=== PATIENT | male | born 1970 | race Caucasian/White ===

== ENCOUNTER 2024-05-02 20:13 | Emergency (ER) | payer BC, SELFPAY ==
[2024-05-02 20:15] VITALS: BP 158/94; BMI 24.4
--- NOTE | 2024-05-02 21:35 | ED.GENMED ---
History of Present Illness
General
Chief Complaint: Fatigue
Source: patient and spouse
Time Seen by Provider: 05/02/24 21:20
History of Present Illness
History of Present Illness:
54yoM with a history of type 2 diabetes and hypertension presenting with his for evaluation of fatigue. Patient has been having diarrhea and a weight loss of 25 pounds over the past several months. His sugars have been ranging in the 300-400
range for the past 8+ months. He has been feeling increasing fatigue over the past week. He denies any fevers or vomiting. He has been seeing his PCP and GI for his symptoms. He had stool studies sent this morning which are pending. He is currently
on Januvia and Rebelsys for his diabetes. He was prescribed insulin several weeks ago but his PCP never told him that this was sent to the pharmacy or instructed him how to use it.
Past History
Past History
ED Past Medical History: HTN and Hypercholesterolemia
ED Past Surgical History: Other (Right inguinal hernia repair approximately 15 years ago)
Social History
Tobacco: Non-smoker
Alcohol: Occasional
Personal:
Living: with family
Employment: Employed
Family History
Family History: Hypertension
Phy Exam
General Physical Exam
General Presentation: well appearing and no apparent distress
General age: appears stated age
General Skin: warm and dry
General Habitus: normal
General Mental: alert
Cardiovascular Exam
Cardiovascular Exam: regular rate/rhythm, no edema and no murmur
Pulmonary Exam
Pulmonary Exam: lungs clear, no respiratory distress, no crackles and no wheezing
Gastrointestinal Exam
Gastrointestinal Exam: non tender, soft and non distended
Skin Exam
Skin Exam: normal color and warm/dry
Psychiatric Exam
Psychiatric Exam: normal mood/affect
Course
Orders/Labs/Results
Orders:
Orders
05/02/24 21:34
Electrocardiogram (*1) Urgent
Reason for Study: Other
Other Reason for Exam: Fatigue
EKG- Treatment ONCE
0.9% Sodium Chloride 1000 ml [Nss] 1,000 ml IV BOLUS
05/02/24 21:44
Complete Blood Count/With Diff Urgent
Comprehensive Metabolic Panel Urgent
Hemoglobin A1c [Glycohemoglobin (HgbA1c)] Urgent
Lipase Urgent
05/02/24 21:52
Urinalysis Reflex To Culture Urgent
Date Specimen was Collected: 05/02/24
Time Specimen was Collected: 21:51
05/02/24 22:22
Insulin Human Regular [Novolin R] 8 units IV NOW STA
05/03/24 00:14
Bedside Glucose- Treatment ONCE
Abnormal Lab Results
05/02/24 05/02/24 05/02/24
21:39 21:44 21:52
MCH 31.7 H pg
(27.0-31.0)
MPV 10.8 H fL
(7.4-10.4)
Sodium 132 L mmol/L
(135-145)
Chloride 96 L mmol/L
(98-107)
BUN 21 H mg/dl
(9-20)
Glucose 519 H* mg/dl
(70-99)
Alkaline Phosphatase 138 H U/L
(38-126)
Urine Glucose 3+ A
(Negative)
POC Glucose 533 H* mg/dl
(70-99)
05/02/24
23:58
MCH
MPV
Sodium
Chloride
BUN
Glucose
Alkaline Phosphatase
Urine Glucose
POC Glucose 335 H mg/dl
(70-99)
05/02/24 21:44
05/02/24 21:44
Vital Signs
Initial and Last Documented VS:
Initial Vital Signs
Temp Pulse Resp BP Pulse Ox
98.1 F 87 16 158/94 98
05/02/24 20:15 05/02/24 20:15 05/02/24 20:15 05/02/24 20:15 05/02/24 20:15
Last Documented Vital Signs
Temp Pulse Resp BP Pulse Ox
98.1 F 88 15 147/85 95
05/02/24 20:15 05/03/24 00:15 05/03/24 00:30 05/03/24 00:00 05/03/24 00:30
MDM/Problems Addressed
Differential Diagnosis Includes:
54yoM here with multiple symptoms. Main symptom is fatigue x 1 week and elevated blood sugars for several months. PCP reportedly prescribed insulin recently which he did not start because he was not given instructions. He is afebrile and
hemodynamically stable. He is well appearing in no distress. Exam is reassuring. Differential diagnosis includes but is not limited to: uncontrolled diabetes, DKA, HHS, LAYO, electrolyte abnormality
Initial ED plan: Check CBC, CMP, A1c, UA, and EKG. IV fluid bolus.
*EKG
Interpreted by ED Provider?: Yes
EKG Intrepretation Date: 05/02/24
EKG Intrepretation Time: 21:59
Heart Rate: 87
Rate: normal
Rhythm: sinus
[place]: normal axis
Interval: normal interval
QRS Pattern: normal QRS
Ischemia: no ischemia
*Critical Care Note
Total Time (30-74mins, 75-104mins- exclusive of procedures): Not Applicable
Update Note
Update Note:
Glucose elevated at 519. Bicarb and anion gap normal. No ketones present in urine. No evidence of DKA. Renal function stable. Patient given 8 units IV regular insulin. Glucose improved to 335. No indication for admission at this time. He was advised
to f/u with his PCP on Sunday. ED return precautions discussed. He was discharged in stable condition.
ED Attending Note
-
Portions of this chart may have been created with voice recognition software.� Occasional wrong word or��sound alike� substitutions may have occurred due to the inherent limitations of voice recognition software.
Discharge Plan
Departure
Patient Disposition: Home (Routine Discharge)
Date of Disposition: 05/03/24
Time of Disposition: 00:27
Patient with high blood pressure during this ER visit?: Yes
Discharge Problem:
Hyperglycemia due to type 2 diabetes mellitus, Fatigue
Prescriptions:
No Action
lisinopril 10 MG tablet
10 mg PO DAILY Qty: 30 0RF
metformin 500 MG tablet
500 mg PO BID Qty: 60 0RF
Referrals:
Yasmine Quintana CRNP [Family Provider] -
Activity Restrictions/Additional Instructions:
Continue your current diabetic medications.
Please follow-up with your family doctor on Sunday. Return to the ER with any new or worsening symptoms.
Interventions
Interventions:
*Risk Screen - Suicide Last Done: 05/02/24 20:15
*General Assessment Last Done: 05/02/24 22:02
*Neglect/Abuse Screening Last Done: 05/02/24 20:15
ED- Fall Risk Assessment Last Done: 05/02/24 20:15
*ED COVID-19 Vaccine History Last Done: 05/02/24 22:02
*Nursing Disposition Last Done: 05/03/24 01:00
Discharge Date and Time
Discharge Date/Time: 05/03/24 01:00
Print Language: VINCENTIAN
[2024-05-02 21:41] LABS: Glucose - Point of Care 533 mg/dl (70-99)
[2024-05-02] MEDS: NSS 1000 IV (21:45)
[2024-05-02 21:50] VITALS: BP 146/89
[2024-05-02 21:58] LABS: % Basophils 0.7 % (0-2); % Eosinophils 4.5 % (0-6); % Immature Granulocytes 0.4 % (0-0.5); % Lymphocytes 30.4 % (20.5-51.1); % Monocytes 6.7 % (1.7-9.3); % Neutrophils 57.3 % (42.2-75.2); Absolute Basophils 0.1 10^3/uL (0-0.2); Absolute Eosinophils 0.4 10^3/uL (0-0.7); Absolute Lymphocytes 2.5 10^3/uL (1.2-3.4); Absolute Monocytes 0.5 10^3/uL (0.1-0.6); Absolute Neutrophils 4.6 10^3/uL (1.4-6.5); Hematocrit 42.7 % (39.0-52.0); Hemoglobin 15.8 g/dL (13.0-18.0); Mean Corpuscular Hgb 31.7 pg (27.0-31.0); Mean Corpuscular Volume 85.7 fL (80.0-94.0); Mean Platelet Volume 10.8 fL (7.4-10.4); Nucleated Red Blood Cells % 0 % (-); Platelet Count 225 10^3/uL (130-400); Red Blood Cell Count 4.98 10^6/uL (4.70-6.10); Red Cell Dist. Width 11.7 % (11.5-14.5); White Blood Cell Count 8.1 10^3/uL (4.8-10.8)
[2024-05-02 21:58] LABS: Urine Albumin Negative (Neg - Trace); Urine Bilirubin Negative (Negative); Urine Character Clear (Clear); Urine Color Yellow; Urine Glucose 3+ (Negative); Urine Ketone Negative (Negative); Urine Leukocyte Negative (Negative); Urine Nitrite Negative (Negative); Urine Occult Blood Negative (Negative); Urine Urobilinogen Negative (Neg - 1+)
[2024-05-02 22:00] VITALS: BP 136/79
[2024-05-02 22:16] LABS: ALT (SGPT) 35 U/L (0-50); AST (SGOT) 24 U/L (17-59); Albumin 4.3 g/dl (3.5-5.0); Alkaline Phosphatase 138 U/L (38-126); Blood Urea Nitrogen 21 mg/dl (9-20); Calcium 9.7 mg/dl (8.4-10.2); Carbon Dioxide 25 mmol/L (22-30); Chloride 96 mmol/L (98-107); Estimated Creatinine Clearance 101 ml/min; Glucose 519 mg/dl (70-99); Lipase 101 U/L (23-300); Potassium 4.3 mmol/L (3.5-5.1); Sodium 132 mmol/L (135-145); Total Bilirubin 0.5 mg/dl (0.2-1.3); Total Protein 6.9 g/dl (6.3-8.2); eGFR > 60.00
[2024-05-02] MEDS: NOVOLIN R 8 UNITS IV (22:39)
[2024-05-02 23:00] VITALS: BP 140/84
[2024-05-02 23:59] LABS: Glucose - Point of Care 335 mg/dl (70-99)
[2024-05-03] VITALS: BP 147/85
[2024-05-03 08:14] LABS: Glycohemoglobin (HgbA1c) 11.5 % (4.0-5.6)
== END 2024-05-03 01:00 | disposition home or self-care (01) ==
LOC: EMR 20:13
PROVIDERS: Physician Assistant; EMERGENCY PHYSICIAN Emergency Medicine; FAMILY PHYSICIAN Nurse Practitioner Family
DX: E11.65 Type 2 diabetes mellitus with hyperglycemia (principal); R53.83 Other fatigue; I10 Essential (primary) hypertension; E78.00 Pure hypercholesterolemia, unspecified; Z82.49 Family history of ischemic heart disease and other diseases of the circulatory system
CPT/HCPCS: 99283; 94640; 96360; 80053; 81003; 82962; 83036; 83690; 85025; 93005

== ENCOUNTER 2024-09-05 14:49 | Emergency (ER) | payer BC, SELFPAY ==
[2024-09-05 14:56] VITALS: BP 138/91
[2024-09-05 15:12] LABS: Urine Albumin Negative (Neg - Trace); Urine Bilirubin Negative (Negative); Urine Character Clear (Clear); Urine Color Yellow; Urine Glucose 3+ (Negative); Urine Ketone Negative (Negative); Urine Leukocyte Negative (Negative); Urine Nitrite Negative (Negative); Urine Occult Blood Negative (Negative); Urine Specific Gravity 1.015 (<1.030); Urine Urobilinogen Negative (Neg - 1+)
[2024-09-05 15:24] LABS: Glucose - Point of Care 353 mg/dl (70-99)
[2024-09-05 15:35] LABS: % Basophils 0.6 % (0-2); % Eosinophils 2.6 % (0-6); % Immature Granulocytes 0.2 % (0-0.5); % Monocytes 6.8 % (1.7-9.3); % Neutrophils 65.8 % (42.2-75.2); Absolute Basophils 0.1 10^3/uL (0-0.2); Absolute Eosinophils 0.2 10^3/uL (0-0.7); Absolute Lymphocytes 2.1 10^3/uL (1.2-3.4); Absolute Monocytes 0.6 10^3/uL (0.1-0.6); Absolute Neutrophils 5.7 10^3/uL (1.4-6.5); Hematocrit 48.6 % (39.0-52.0); Hemoglobin 16.7 g/dL (13.0-18.0); Mean Corp Hgb Conc. 34.4 g/dL (33.0-37.0); Mean Corpuscular Hgb 30.9 pg (27.0-31.0); Mean Platelet Volume 10.2 fL (7.4-10.4); Nucleated Red Blood Cells % 0 % (-); Platelet Count 226 10^3/uL (130-400); Red Cell Dist. Width 12.1 % (11.5-14.5); White Blood Cell Count 8.6 10^3/uL (4.8-10.8)
[2024-09-05 15:52] LABS: ALT (SGPT) 48 U/L (0-50); AST (SGOT) 29 U/L (17-59); Albumin 4.6 g/dl (3.5-5.0); Alkaline Phosphatase 122 U/L (38-126); Blood Urea Nitrogen 20 mg/dl (9-20); Calcium 9.6 mg/dl (8.4-10.2); Carbon Dioxide 25 mmol/L (22-30); Chloride 101 mmol/L (98-107); Glucose 372 mg/dl (70-99); Potassium 4.8 mmol/L (3.5-5.1); Sodium 140 mmol/L (135-145); Total Bilirubin 0.5 mg/dl (0.2-1.3); Total Protein 7.4 g/dl (6.3-8.2); eGFR > 60.00
[2024-09-05 15:58] LABS: B-Hydroxybutyrate 0.11 mmol/L (0.02-0.27)
[2024-09-05 16:28] VITALS: BP 137/109
[2024-09-05 17:00] VITALS: BP 114/81
[2024-09-05 17:28] VITALS: BMI 25.1
[2024-09-05 18:00] VITALS: BP 132/87
--- NOTE | 2024-09-05 18:14 | ED.GENMED ---
History of Present Illness
General
Chief Complaint: Male Genito-Urinary Symptoms
Time Seen by Provider: 09/05/24 18:05
History of Present Illness
History of Present Illness:
54-year-old male with history of insulin-dependent diabetes presents to the emergency department for evaluation of intermittent hematuria occurring over the past month. Estimates 3-4 episodes of gross hematuria without dysuria or urgency. Denies
any urinary retention symptoms. He is a diabetic and newly on insulin with generally poor glucose control. Does report mild polyuria and polydipsia. Denies any weight loss or night sweats.
Past History
Past History
ED Past Medical History: HTN and Hypercholesterolemia
ED Past Surgical History: Other (Right inguinal hernia repair approximately 15 years ago)
Social History
Tobacco: Non-smoker
Alcohol: Occasional
Personal:
Living: with family
Employment: Employed
Family History
Family History: Hypertension
Review of Systems
Review of Systems
Allergies reviewed?: Yes
All Other Systems: ROS reviewed and negative except as documented in HPI and ROS
Phy Exam
Physical Exam
Physical Exam:
GEN: Well appearing, NAD, WDWN
HEENT: Oral mucosa moist, no scleral icterus
Cardiac: Regular rate and rhythm, no murmurs
Lung: No respiratory distress, no tachypnea
Abdomen: Soft, grossly nontender, no masses
MSK: No gross deformity or injuries
Skin: Good color, no pallor or jaundice, no rashes
Neuro: AO x3, moves all extremities freely
Psych: Calm, cooperative
Course
Orders/Labs/Results
Orders:
Orders
09/05/24 15:01
Urinalysis Reflex To Culture Urgent
Date Specimen was Collected: 09/05/24
Time Specimen was Collected: 14:58
09/05/24 15:26
B-Hydroxybutyrate Urgent
Complete Blood Count/With Diff Urgent
Comprehensive Metabolic Panel Urgent
09/05/24 18:14
US Renal Only W/O Bladder Urgent
Comment:
Reason For Exam: painless hematuria
Abnormal Lab Results
09/05/24 09/05/24 09/05/24
15:01 15:23 15:26
Glucose 372 H mg/dl
(70-99)
Urine Glucose 3+ A
(Negative)
POC Glucose 353 H mg/dl
(70-99)
09/05/24 15:26
09/05/24 15:26
Vital Signs
Initial and Last Documented VS:
Initial Vital Signs
Temp Pulse Resp BP Pulse Ox
98.2 F 87 16 138/91 99
09/05/24 14:56 09/05/24 14:56 09/05/24 14:56 09/05/24 14:56 09/05/24 14:56
Last Documented Vital Signs
Temp Pulse Resp BP Pulse Ox
98.2 F 81 17 102/88 97
09/05/24 14:56 09/05/24 19:45 09/05/24 19:45 09/05/24 19:08 09/05/24 19:45
MDM/Problems Addressed
MDM/Problems Addressed:
54-year-old male presenting with intermittent painless hematuria. Urinalysis shows only glucose urea which is likely on the basis of hyperglycemia coupled with Jardiance use, no evidence of UTI or hematuria on evaluation today. Other than
hyperglycemia his labs are reassuring, he has no clinical symptoms concerning for DKA at this time, educated on strict glucose control, he is newly on insulin and states that he has not been seeing readings as high as the 372 on venous blood sugar
here compared to his readings at home. For his hematuria and lack of flank pain do not see any indication for CT, renal ultrasound shows no renal malignancy. Recommend urologic follow-up for possible cystoscopy if symptoms persist.
*Critical Care Note
Total Time (30-74mins, 75-104mins- exclusive of procedures): Not Applicable
ED Attending Note
-
Portions of this chart may have been created with voice recognition software.� Occasional wrong word or��sound alike� substitutions may have occurred due to the inherent limitations of voice recognition software.
Discharge Plan
Departure
Patient Disposition: Home (Routine Discharge)
Date of Disposition: 09/05/24
Time of Disposition: 19:53
Patient with high blood pressure during this ER visit?: No
Discharge Problem:
Painless hematuria
Instructions: Blood in the Urine (Hematuria), Adult (DC)
Prescriptions:
No Action
lisinopril 10 MG tablet
10 mg PO DAILY Qty: 30 0RF
metformin 500 MG tablet
500 mg PO BID Qty: 60 0RF
Referrals:
Travis Ball MD [Active] -
Yasmine Quintana CRNP [Family Provider] -
Activity Restrictions/Additional Instructions:
Follow up with urology for further evaluation of your intermittent hematuria
Return to the ER if you develop severe abdominal/flank pain, fevers or difficulty urinating
Interventions
Interventions:
*Risk Screen - Suicide Last Done: 09/05/24 14:56
*General Assessment Last Done: 09/05/24 14:56
*Neglect/Abuse Screening Last Done: 09/05/24 14:56
ED- Fall Risk Assessment Last Done: 09/05/24 18:00
*ED COVID-19 Vaccine History Last Done: 09/05/24 17:30
*Nursing Disposition Last Done: 09/05/24 20:04
ED-Male Genitourinary Assessment Last Done: 09/05/24 18:00
Discharge Date and Time
Discharge Date/Time: 09/05/24 20:05
Print Language: GREENLANDIC
[2024-09-05 19:08] VITALS: BP 102/88
== END 2024-09-05 20:05 | disposition home or self-care (01) ==
LOC: EMR 14:49
PROVIDERS: Student in an Organized Health Care Education/Training Program; EMERGENCY PHYSICIAN Emergency Medicine; FAMILY PHYSICIAN Nurse Practitioner Family
DX: R31.0 Gross hematuria (principal); E11.65 Type 2 diabetes mellitus with hyperglycemia; I10 Essential (primary) hypertension; E78.00 Pure hypercholesterolemia, unspecified; Z79.4 Long term (current) use of insulin; Z79.84 Long term (current) use of oral hypoglycemic drugs
CPT/HCPCS: 99284; 76775; 80053; 81003; 82010; 82962; 85025

== ENCOUNTER 2024-11-04 06:26 | Day surgery (SDC) | payer BC, SELFPAY ==
[2024-10-24 13:07] VITALS: BMI 25.0
[2024-11-04] VITALS (7 sets, daily range): BP systolic 90–162; BP diastolic 59–97; BMI 25.0
[2024-11-04 10:24] LABS: Glucose - Point of Care 338 mg/dl (70-99)
[2024-11-04] MEDS: NORMOSOL-R/PLASMALYTE-A 1000 IV (10:39)
[2024-11-04] MEDS: NOVOLOG vial 3 UNITS SC (11:20)
[2024-11-04 13:35] LABS: Glucose - Point of Care 251 mg/dl (70-99)
[2024-11-04 14:02] LABS: Glucose - Point of Care 217 mg/dl (70-99)
[2024-11-04] MEDS: NOVOLOG vial 1 UNITS SC (14:06)
== END 2024-11-04 15:25 | disposition home or self-care (01) ==
LOC: SDS 06:26
PROVIDERS: ATTENDING PHYSICIAN Specialist; FAMILY PHYSICIAN Nurse Practitioner Family
PROC: 0VTTXZZ Resection of Prepuce, External Approach (ICD-10-PCS; 2024-11-04)
DX: N48.1 Balanitis (principal); N47.1 Phimosis; N47.8 Other disorders of prepuce; E11.9 Type 2 diabetes mellitus without complications
CPT/HCPCS: 54161; 88304; 36415; 82962; 93005

== ENCOUNTER 2024-12-08 23:51 | Inpatient (IN) | payer BC, SELFPAY ==
[2024-12-08 17:43] VITALS: BP 148/97
--- NOTE | 2024-12-08 17:55 | ED.GENMED ---
ED Provider Triage
<TARA Argueta - Last Filed: 12/08/24 17:58>
-
Patient seen by provider in Triage?: Seen in Triage
Attestation: A medical screening examination has been initiated by a qualified medical provider. Based on the assessment performed at this time, it has been determined that an emergent medical condition may exist and the patient has been informed
that further medical evaluation and possible additional diagnostic testing may be needed.
HPI: 54-year-old male presents here complaining of left foot /leg pain/redness. Pt is a diabetic and started with left foot discomfort yesterday. He noticed today that his foot and lower leg were red and that he had a callus on the bottom of his
foot. He did not have a fever but has had chills. He was not aware that he had a callus. He does have peripheral neuropathy.
GENERAL: Alert , in no apparent distress
EYE: No visual abnormalities.
NECK: Trachea midline
ENT: No visible abnormalities.
LUNGS: No acute respiratory distress
NEUROLOGICAL: Alert and oriented
SKIN: Skin intact. No visible changes.
MUSCULOSKELETAL: Moving extremities normally, patient with left foot dorsal erythema /mild swelling; Erythema is extending up to anterior lower leg + callus to plantar aspect of foot
PSYCH: Normal and appropriate interaction.
This is a medical evaluation conducted in person to initiate diagnostic evaluation and provide initial therapeutics. Please see further documentation by the treating clinician.
History of Present Illness
<TARA Argueta - Last Filed: 12/08/24 17:58>
General
Chief Complaint: Skin Problem
Time Seen by Provider: 12/08/24 19:59
<Joseph Cherry PA-C - Last Filed: 12/08/24 22:54>
General
Source: patient
History of Present Illness
History of Present Illness:
54-year-old male with past medical history of hypertension, hyperlipidemia and insulin-dependent diabetes presenting to the emergency department for evaluation of left foot infection that he states started noticed yesterday with erythema streaking
up the left anterior leg. Patient states he believes he has a callus on the plantar surface of the left foot at the distal fifth metatarsal. Patient denies any known injury although states he does have a history of diabetic neuropathy. States
blood sugars have been elevated, normally does not check blood sugars very frequently. Last hemoglobin A1c was just under 10.
Past History
<TARA Argueta - Last Filed: 12/08/24 17:58>
Past History
ED Past Medical History: HTN and Hypercholesterolemia
ED Past Surgical History: Other (Right inguinal hernia repair approximately 15 years ago)
Social History
Tobacco: Non-smoker
Alcohol: Occasional
Personal:
Living: with family
Employment: Employed
Family History
Family History: Hypertension
<Joseph Cherry PA-C - Last Filed: 12/08/24 22:54>
Past History
ED Past Medical History: IDDM and Psychiatric
Social History
Drug: None
Review of Systems
<Joseph Cherry PA-C - Last Filed: 12/08/24 22:54>
Review of Systems
All Other Systems: ROS reviewed and negative except as documented in HPI and ROS
Phy Exam
<Joseph Cherry PA-C - Last Filed: 12/08/24 22:54>
Physical Exam
Physical Exam:
GENERAL: Alert , in no apparent distress
EYE: conjunctiva clear
NECK: Supple, no significant adenopathy.
ENT: o/p clr, mmm.
NEUROLOGICAL: Alert and oriented
SKIN: Warm and dry, abscess to the plantar surface of the left foot at the level of the distal fifth metatarsal. There is mild purulent drainage. Erythema extends from the lateral aspect of the fifth metatarsal into the anterior tibia to the
proximal tibia. Hot to the touch. Sensation blunted at baseline
MUSCULOSKELETAL: well perfused.
PSYCH: Normal and appropriate interaction.
Scores
<Joseph Cherry PA-C - Last Filed: 12/08/24 22:54>
Heart Failure Risk
Heart Failure Risk Score: Not Applicable
Heart Score for Chest Pain Patients
STEMI patient?: Not applicable
Withdrawal Assessment of Alcohol
Withdrawal Assessment Completed?: Not applicable
Course
<TARA Argueta - Last Filed: 12/08/24 17:58>
Orders/Labs/Results
Orders:
Orders
12/08/24 17:57
Foot, Left 3 View [CR Foot - Left Min 3 Views] Urgent
Comment:
Reason For Exam: infection
12/08/24 18:13
Complete Blood Count/With Diff Urgent
Comprehensive Metabolic Panel Urgent
12/08/24 20:34
Piperacillin/Tazo 3.375 Gram [Zosyn] 3.375 gram in 50 ml IV NOW
Vancomycin [Vancocin] 2,000 mg 0.9% Sodium Chloride 500 ml [Nss] 500 ml IV NOW
12/08/24 20:49
Hemoglobin A1c [Glycohemoglobin (HgbA1c)] Urgent
Wound Culture [Wound/Abscess/Other Culture] Urgent
DEZ Source: Foot
Specimen Description: Left
Date Specimen was Collected: 12/08/24
Time Specimen was Collected: 20:43
12/08/24 22:00
Flush (0.9% Sodium Chloride) [Flush (Nss)] See Dose Instructions IV PER PROTOCOL
Abnormal Lab Results
12/08/24
18:13
MCH 31.1 H pg
(27.0-31.0)
Absolute Neuts (auto) 7.7 H 10^3/uL
(1.4-6.5)
Absolute Monos (auto) 0.8 H 10^3/uL
(0.1-0.6)
Lymphocytes % 14.3 L %
(20.5-51.1)
Sodium 133 L mmol/L
(135-145)
Chloride 95 L mmol/L
(98-107)
BUN 21 H mg/dl
(9-20)
Glucose 392 H mg/dl
(70-99)
12/08/24 18:13
12/08/24 18:13
Vital Signs
Initial and Last Documented VS:
Initial Vital Signs
Temp Pulse Resp BP Pulse Ox
98.2 F 92 16 148/97 98
12/08/24 17:43 12/08/24 17:43 12/08/24 17:43 12/08/24 17:43 12/08/24 17:43
Last Documented Vital Signs
Temp Pulse Resp BP Pulse Ox
98.2 F 92 16 129/75 95
12/08/24 17:43 12/08/24 17:43 12/08/24 17:43 12/08/24 22:00 12/08/24 22:15
<Joseph Cherry PA-C - Last Filed: 12/08/24 22:54>
Orders/Labs/Results
Orders:
Orders
12/08/24 17:57
Foot, Left 3 View [CR Foot - Left Min 3 Views] Urgent
Comment:
Reason For Exam: infection
12/08/24 18:13
Complete Blood Count/With Diff Urgent
Comprehensive Metabolic Panel Urgent
12/08/24 20:34
Piperacillin/Tazo 3.375 Gram [Zosyn] 3.375 gram in 50 ml IV NOW
Vancomycin [Vancocin] 2,000 mg 0.9% Sodium Chloride 500 ml [Nss] 500 ml IV NOW
12/08/24 20:49
Hemoglobin A1c [Glycohemoglobin (HgbA1c)] Urgent
Wound Culture [Wound/Abscess/Other Culture] Urgent
DEZ Source: Foot
Specimen Description: Left
Date Specimen was Collected: 12/08/24
Time Specimen was Collected: 20:43
12/08/24 22:00
Flush (0.9% Sodium Chloride) [Flush (Nss)] See Dose Instructions IV PER PROTOCOL
Abnormal Lab Results
12/08/24
18:13
MCH 31.1 H pg
(27.0-31.0)
Absolute Neuts (auto) 7.7 H 10^3/uL
(1.4-6.5)
Absolute Monos (auto) 0.8 H 10^3/uL
(0.1-0.6)
Lymphocytes % 14.3 L %
(20.5-51.1)
Sodium 133 L mmol/L
(135-145)
Chloride 95 L mmol/L
(98-107)
BUN 21 H mg/dl
(9-20)
Glucose 392 H mg/dl
(70-99)
12/08/24 18:13
12/08/24 18:13
Vital Signs
Initial and Last Documented VS:
Initial Vital Signs
Temp Pulse Resp BP Pulse Ox
98.2 F 92 16 148/97 98
12/08/24 17:43 12/08/24 17:43 12/08/24 17:43 12/08/24 17:43 12/08/24 17:43
Last Documented Vital Signs
Temp Pulse Resp BP Pulse Ox
98.2 F 92 16 129/75 95
12/08/24 17:43 12/08/24 17:43 12/08/24 17:43 12/08/24 22:00 12/08/24 22:15
<Joseph Cherry PA-C - Last Filed: 12/08/24 22:54>
MDM/Problems Addressed
Differential Diagnosis Includes:
Diabetic foot wound, osteomyelitis, cellulitis, uncontrolled diabetes
MDM/Problems Addressed:
54-year-old male presenting to the ER for evaluation of diabetic foot wound to the left lower extremity. Symptoms ongoing for 2 days. Labs ordered in triage show no leukocytosis however patient does have significant hyperglycemia and
pseudohyponatremia. X-ray ordered does not show any evidence for osteomyelitis. Given patient's clearly uncontrolled diabetes combined with the streaking lymphangitis and abscess we will plan for admission for IV antibiotics and anticipated
podiatry consultation.
Chronic conditions affecting care: DM
Acute Exacerbation and/or Progression of Chronic Illness: DM
<Joseph Cherry PA-C - Last Filed: 12/08/24 22:54>
*Radiology
Radiology exam reviewed: preliminary read by ED provider (No osteomyelitis)
*Pulse Oximetry
Patient hypoxic: no
*Critical Care Note
Total Time (30-74mins, 75-104mins- exclusive of procedures): Not Applicable
<Joseph Cherry PA-C - Last Filed: 12/08/24 22:54>
Patient Management
Discussion with other providers: Hospitalist
Escalation/DeEscalation of care consider admission/obs:
Hospitalist team accepts for continued evaluation and treatment
ED Attending Note
<TARA Argueta - Last Filed: 12/08/24 17:58>
-
Portions of this chart may have been created with voice recognition software.� Occasional wrong word or��sound alike� substitutions may have occurred due to the inherent limitations of voice recognition software.
Discharge Plan
Departure
Patient Disposition: Admit
Date of Disposition: 12/08/24
Time of Disposition: 20:37
Presentation/result/management discussed w/ accepting MD/DO: Hospitalist
Discharge Problem:
Abscess of left foot, Cellulitis of left lower extremity
Prescriptions:
No Action
atorvastatin 10 mg tablet
10 mg PO HS
omeprazole 20 mg capsule,delayed release(DR/EC)
20 mg PO HS
aripiprazole 2 mg Tablet
2 mg PO HS
Rybelsus 7 mg tablet
7 mg PO HS
insulin glargine-yfgn [Semglee(insulin glarg-yfgn)Pen] 100 unit/mL (3 mL) insulin pen
40 unit SC HS
Jardiance 25 mg tablet
25 mg PO HS
losartan 50 mg tablet
50 mg PO HS
metoprolol succinate 100 mg tablet extended release 24 hr
100 mg PO HS
sertraline 50 mg Tablet
100 mg PO HS
lorazepam 0.5 mg Tablet
0.5 mg PO DAILYPRN PRN (Reason: plane flights)
Interventions
Interventions:
*Risk Screen - Suicide Last Done: 12/08/24 17:43
*General Assessment Last Done: 12/08/24 20:44
*Neglect/Abuse Screening Last Done: 12/08/24 17:43
ED- Fall Risk Assessment Last Done: 12/08/24 20:44
*ED COVID-19 Vaccine History Last Done: 12/08/24 20:44
ED-Skin Assessment Last Done: 12/08/24 20:44
Discharge Date and Time
Print Language: CHILEAN
[2024-12-08 18:19] LABS: % Basophils 0.5 % (0-2); % Eosinophils 2.6 % (0-6); % Immature Granulocytes 0.2 % (0-0.5); % Lymphocytes 14.3 % (20.5-51.1); % Monocytes 7.7 % (1.7-9.3); % Neutrophils 74.7 % (42.2-75.2); Absolute Basophils 0.1 10^3/uL (0-0.2); Absolute Eosinophils 0.3 10^3/uL (0-0.7); Absolute Lymphocytes 1.5 10^3/uL (1.2-3.4); Absolute Monocytes 0.8 10^3/uL (0.1-0.6); Absolute Neutrophils 7.7 10^3/uL (1.4-6.5); Hematocrit 44.9 % (39.0-52.0); Hemoglobin 15.8 g/dL (13.0-18.0); Mean Corp Hgb Conc. 35.2 g/dL (33.0-37.0); Mean Corpuscular Hgb 31.1 pg (27.0-31.0); Mean Corpuscular Volume 88.4 fL (80.0-94.0); Mean Platelet Volume 10.2 fL (7.4-10.4); Nucleated Red Blood Cells % 0 % (-); Platelet Count 221 10^3/uL (130-400); Red Blood Cell Count 5.08 10^6/uL (4.70-6.10); Red Cell Dist. Width 12.2 % (11.5-14.5); White Blood Cell Count 10.3 10^3/uL (4.8-10.8)
[2024-12-08 18:41] LABS: ALT (SGPT) 27 U/L (0-50); AST (SGOT) 19 U/L (17-59); Albumin 4.6 g/dl (3.5-5.0); Alkaline Phosphatase 109 U/L (38-126); Blood Urea Nitrogen 21 mg/dl (9-20); Calcium 9.7 mg/dl (8.4-10.2); Carbon Dioxide 26 mmol/L (22-30); Chloride 95 mmol/L (98-107); Glucose 392 mg/dl (70-99); Potassium 4.8 mmol/L (3.5-5.1); Sodium 133 mmol/L (135-145); Total Protein 7.2 g/dl (6.3-8.2); eGFR > 60.00
[2024-12-08 20:44] VITALS: BMI 26.5
[2024-12-08 20:48] VITALS: BP 155/83
[2024-12-08] MEDS: ZOSYN 50 IV (20:54)
[2024-12-08 21:00] VITALS: BP 111/59
[2024-12-08] MEDS: VANCOCIN 540 MG IV (21:27)
[2024-12-08 22:00] VITALS: BP 129/75
[2024-12-08] MEDS: FLUSH (NSS) 1 FLUSH IV (22:19)
[2024-12-08 23:00] VITALS: BP 119/74
--- NOTE | 2024-12-08 23:02 | HPS.HSE ---
Family Physician
-
Family Physician: TARA Camilo
Chief Complaint
-
left foot pain, redness and swelling
History of Present Illness
Patient is a 54-year-old male with past medical history significant for essential hypertension, DM II, and hyperlipidemia who presented to [facility] ED for evaluation of left foot discomfort associated with redness and swelling. Patient
reports yesterday feeling pain in the left foot but did not notice anything abnormal. He states today he noticed the redness and edema. Patient reports checking feet daily and does not recall any opening to area although a 'callus' was present.
Patient reports having the chills last night and today but does not recall noticing feeling feverish. He denies any cough, shortness of breath, chest pain, nausea, vomiting, constipation, diarrhea or urinary symptoms.
Medical History
Past Medical History
Past Medical History: Reports Other
Additional Past Medical History:
essential hypertension
DM II
hyperlipidemia
anxiety/depression
Past Surgical History: Reports Other
Additional Past Surgical History:
nasal reconstruction (1995)
Hernia repair(2000) 09/2001
Laparoscopic right inguinal hernia repair(2000)
Circumcision (10/2024)
Social History
Tobacco: Non-smoker
Alcohol: Occasional
Drug: None
Personal:
Living: With Family
Employment: Employed
Family History
Family History: Other (Mother: dementia; Brother: lymphoma )
Allergies / Home Medications
Allergies reflects when Allergies were last updated in [employer].
Home Medications with original date entered in [employer]
Allergy/Medication List:
Allergies
Allergy/AdvReac Type Severity Reaction Status Date / Time
No Known Allergies Allergy Verified 12/08/24 17:46
Home Medications
aripiprazole 2 mg tablet 2 mg PO HS 10/28/24
atorvastatin 10 mg tablet 10 mg PO HS 10/28/24
empagliflozin 25 mg tablet (Jardiance) 25 mg PO HS 10/28/24
insulin glargine-yfgn 100 unit/mL (3 mL) subcutaneous pen (Semglee (insulin glargine-yfgn) Pen) 40 unit SC HS 10/28/24
losartan 50 mg tablet 50 mg PO HS 10/28/24
metoprolol succinate 100 mg tablet,extended release 24 hr 100 mg PO HS 10/28/24
omeprazole 20 mg capsule,delayed release 20 mg PO HS 10/28/24
semaglutide 7 mg tablet (Rybelsus) 7 mg PO HS 10/28/24
sertraline 50 mg tablet 100 mg PO HS 10/28/24
lorazepam 0.5 mg tablet 0.5 mg PO DAILYPRN PRN plane flights 12/08/24
Review of Systems
-
History Source: Patient
Constitutional: Reports No Symptoms
EENT: Reports No Symptoms
Respiratory: Reports No Symptoms
Cardiac: Reports No Symptoms
Abdomen/GI: Reports No Symptoms
: Reports No Symptoms
Musculoskeletal: Reports Other (left foot pain with redness and swelling )
Skin: Reports No Symptoms
Neurological: Reports No Symptoms
Endocrine: Reports No Symptoms
Hematologic/Lymphatic: Reports No Symptoms
Psych: Reports No Symptoms
Physical Exam
Vital Signs
Vital Signs
Temp Pulse Resp BP Pulse Ox
98.2 F 92 16 129/75 95
12/08/24 17:43 12/08/24 17:43 12/08/24 17:43 12/08/24 22:00 12/08/24 22:15
Physical Exam
General: Well Developed, Well Nourished, No Apparent Distress, Comfortable and Conversant
HEENT: NormoCephalic, Moist mucous membranes, Atraumatic, PERRLA, Welch Conjunctivae, Nose Appears Normal and Ears Appear Normal
Respiratory: Clear and Non Labored Respirations
Cardiac: S1/S2 and Regular Rhythm; No Murmur, Rub or Gallop
Breast: Deferred by me
GI: Soft, Non Tender, Non Distended and Normal Bowel Sounds; No Organomegaly
Rectal: Deferred by Provider
Genito-urinary: Deferred by me
Musculoskeletal: No Clubbing, No Cyanosis and No Edema
Skin: Warm, Lesions (left lateral foot erythema, edema and discomfort, warm to touch and travels up to and up leg ) and IV/Catheter Site; No Rash
Neuro: Awake, Alert, AO x 3 and Nonfocal/grossly intact
Psych: Calm and Intact Judgment/Insight
Laboratory Results
-
12/08/24 18:13
12/08/24 18:13
Laboratory Results
Total Bilirubin 1.0 mg/dl (0.2-1.3) 12/08/24 18:13
AST 19 U/L (17-59) 12/08/24 18:13
ALT 27 U/L (0-50) 12/08/24 18:13
Alkaline Phosphatase 109 U/L (38-126) 12/08/24 18:13
Data Reviewed
-
Diagnostic Radiology: Report Reviewed by me (Lt Foot: No radiographic evidence for osteomyelitis. No evidence for soft tissue air or radiopaque foreign body.)
Lab Data: Labs Reviewed by me
Impression/Plan
-
IMPRESSION/PLAN:
#diabetic foot wound
Left foot x-ray: No radiographic evidence for osteomyelitis.
No evidence for soft tissue air or radiopaque foreign body.
Wound culture: pending
- Admit to med/surg
- IV antibiotics
- supportive care
- ID consult
#DM II
- A1C pending
- continue insulin glargine, Jardiance and semaglutide
- AccuCheck AC & HS
- SSI
#essential hypertension
- continue losartan and metoprolol
#hyperlipidemia
- continue atorvastatin
#anxiety/depression
- continue aripiprazole, lorazepam and sertraline
#GERD
- continue omeprazole
#peripheral neuropathy
Code status: full code
DVT prophylaxis: Lovenox sq
--- NOTE | 2024-12-08 23:45 | W.PN.UPDATE ---
Update Note
Progress Note Update
Patient seen in conjunction with TARA. I agree with the findings and history and physical. I concur with assessment and plan listed otherwise.
This is a 54-year-old with past medical history significant for insulin-dependent diabetes, hyperlipidemia, GERD who presents to the emergency department with acute onset pain and redness in the left foot. He reported being in usual state of health
until last night when he noticed pain the lateral aspect of his left foot 2 was a distal part of the metatarsal. He did not make too much of it. However overnight he reported some chills. And then in the morning he reported redness. He did
notice streaking redness coming up his legs. He said come to the emergency department for evaluation. He denied any nausea or vomiting. He denied any prior diabetic foot infections. He denied any prior ulcers. He reports that his had a callus
in that foot for some time.
He reports compliance with insulin regimen.
In the emergency department was afebrile, blood pressure was 119/74 with a pulse of 90 and satting 100% on room air. CBC was unremarkable. Electrolytes BUN/creatinine were only notable for hyperglycemia to glucose of 392. LFTs were normal.
Lactic acid was normal. He had a x-ray of the foot which shows no foreign body, no gas, no fluid collection and no periosteal changes concerning for cellulitis.
There was an attempted drainage and patient reported that a small amount of drainage was achieved in the ED that was sent for cultures.
Assessment and plan
Diabetic foot infection without an obvious ulcer. No gangrene. He does appear to be a purulent cellulitis with lymphangitic extension up to leg. No sepsis. Hemodynamically stable afebrile and in no acute distress.
-Admit to MedSurg
-Follow-up cultures
-For purulent cellulitis with diabetes, continue IV vancomycin
-Check MRSA swab
-ID consultation
Diabetes -hyperglycemia without DKA
Continue Lantus 30 at bedtime (patient takes 40 at bedtime at home)
-Cover current hyperglycemia
-Continue Jardiance and statin
-Continue semaglutide
DVT PPX - lovenox s/q
Code status - Full code
[2024-12-08 23:49] LABS: Glucose - Point of Care 264 mg/dl (70-99)
[2024-12-09] VITALS: BP 121/73
[2024-12-09] MEDS: LANTUS 0.3 UNITS SC ×2 (00:14→22:13)
[2024-12-09] MEDS: NOVOLOG FLEXPEN 3 UNITS SC (00:15)
[2024-12-09 00:50] VITALS: BP 137/85
[2024-12-09 00:58] VITALS: BMI 25.7
--- NOTE | 2024-12-09 01:31 | PTCARENOTE ---
pt arrived to floor via stretcher from the ED. Pt AAOx3. Pt ambulatory to room without difficulty, stable on feet. Pt reports left foot redness/ swelling. Left plantar foot noted to have hard, yellow, callous, no drainage, no pain upon palpation.
left anterior foot/christiansen with warmth, redness, erythema, slight tenderness noted. NO other complaints offered. Right AC int capped. Vital signs stable. Denies need for pain medication at this time. Call dickinson in reach. Will continue to monitor.
[2024-12-09 07:20] VITALS: BP 127/81
[2024-12-09 08:11] LABS: Hematocrit 46.6 % (39.0-52.0); Mean Corp Hgb Conc. 34.3 g/dL (33.0-37.0); Mean Corpuscular Hgb 30.9 pg (27.0-31.0); Mean Corpuscular Volume 90.1 fL (80.0-94.0); Mean Platelet Volume 10.3 fL (7.4-10.4); Platelet Count 201 10^3/uL (130-400); Red Blood Cell Count 5.17 10^6/uL (4.70-6.10); Red Cell Dist. Width 12.3 % (11.5-14.5); White Blood Cell Count 8.2 10^3/uL (4.8-10.8)
--- NOTE | 2024-12-09 08:26 | W.PN.HOSP.TC ---
Today's Communication/Plan
-
see outlined plan below
Assessment / Plan
Assessment / Plan
Assessment:
Diabetic foot infection, acute with cellulitis
- Xray without osteomyelitis
- callous on plantar surface, near 5th toe with pus and streaking cellulitis to mid christiansen
- RN to julianne cellulitis pattern
- continue Vancomycin pending MRSA swab
- continue Ancef
- ID consult
- Podiatry consult
- wound care consult
Type 2 IDDM
- continue Lantus
- continue Jardiance
- on semaglutide - held
- SSI
- A1c
- DEPARTMENT CLINICIAN consulted
Pseudohyponatremia
- from hyperglycemia
- monitor BMP
Essential HTN
- continue ARB/BB
HLD - statin
Anxiety/Depression
- continue Zoloft/Abilify
DVT ppx: Lovenox
Code: Full
Anticipated Discharge: 24 - 48 hours
Subjective/Interval History
-
Date of Service: December 09, 2024
pain is minimal
Denies fever or chills
Objective Data
-
Labs:
Laboratory Results
12/09/24
07:26
WBC 8.2
Hgb 16.0
Hct 46.6
Plt Count 201
Sodium Pending
Potassium Pending
Chloride Pending
Carbon Dioxide Pending
BUN Pending
Creatinine Pending
Glucose Pending
Calcium Pending
Vital Signs:
Vital Signs
Temp Pulse Resp BP Pulse Ox
98.7 F 79 17 127/81 98
12/09/24 07:20 12/09/24 07:20 12/09/24 07:20 12/09/24 07:20 12/09/24 07:20
I&O
12/08/24 12/09/24 12/10/24
06:59 06:59 06:59
Intake Total 480 / 480
Balance 480 / 480
Physical Exam
-
General: No Apparent Distress
HEENT: Normocephalic and Atraumatic
Respiratory: Clear to Auscultation; Negative Wheezes
Cardiac: Regular Rhythm and S1/S2
GI: Soft
Genito-urinary: No Costovertebral Tender
Neuro: AO x 3
Hematologic / Lymphatic: No Lymphadenopathy
Psych: Calm
Data Reviewed
-
Total Time Spent with Patient (in minutes): 41
Labs: Labs Reviewed by me
[2024-12-09 08:30] LABS: Glucose - Point of Care 166 mg/dl (70-99)
[2024-12-09 08:49] LABS: Blood Urea Nitrogen 16 mg/dl (9-20); Calcium 9.2 mg/dl (8.4-10.2); Carbon Dioxide 30 mmol/L (22-30); Chloride 101 mmol/L (98-107); Estimated Creatinine Clearance 101 ml/min; Glucose 155 mg/dl (70-99); Potassium 4.2 mmol/L (3.5-5.1); Sodium 139 mmol/L (135-145); eGFR > 60.00
--- NOTE | 2024-12-09 08:59 | PN.DE.MGMTRT ---
Insulin Management
- -
12/09/2024 Diabetes Management Consult
Patient admitted 12/08 with L foot/leg pain and redness, found to have cellulitis. PMH HTN, HLD, anxiety/depression. A1C 10.5% (05/02/24 A1C 11.5%), cr .9, eGFR > 60. Prior to admission was taking Rybelsus 7 mg @ hs, Jardiance 25 mg @ HS, Semglee
40 units @ HS.
Patient is awake alert and oriented able to discuss diabetes management. States he has had diabetes 10+ years, sees primary doctor for management. He has a working glucose monitor.
Received 30 units lantus @ hs , fasting glucose 155 v this AM. Will start AC novolog 4 units with low corrective and continue lantus 30 units @ hs, farxiga 10 daily.
Discussed at length importance of taking medications when they will work best to control glucose. Encouraged to take Rybelsus and Jardiance in AM, patient verbalized understanding.
Discussed with nurse.
Will follow
Diabetes History
- -
Type of Diabetes: 2 requiring insulin
Pre-Admission Diabetes Regimen
12/08/24 12/09/24
18:13 07:26
Creatinine 0.9 0.9
Insulin Pump Settings
IP Diabetes Regimen
12/08/24 12/08/24 12/09/24
18:13 23:48 07:26
Glucose 392 H 155 H
POC Glucose 264 H
12/09/24
08:19
Glucose
POC Glucose 166 H
Patient Education
[2024-12-09 09:17] LABS: Glycohemoglobin (HgbA1c) 10.5 % (4.0-5.6)
[2024-12-09] MEDS: ANCEF 5 IV ×3 (09:55→23:37)
[2024-12-09] MEDS: NOVOLOG FLEXPEN 4 UNITS SC ×3 (09:56→18:22)
[2024-12-09] MEDS: NOVOLOG FLEXPEN-LOW RESISTANCE 1 UNITS SC ×2 (09:56→14:00)
--- NOTE | 2024-12-09 11:06 | CON.MD ---
Consultation - Medical
-
Consult Dr Jamie Joseph 12/09/2024 @ 8:26a
Consult performed by Dr Lissy Birmingham 12/09/2024 @ 10:15a
CC: Cellulitis/Lymphangitis left foot
Medical History
History of Present Illness
This is a 54 year old Type 2 diabetic man who presented to the ED 12/08/24 with less than 24 hr history of redness, swelling and tenderness to the left foot. He believes this is from a callus but has not seen any drainage.
Denies F/N/V/SOB or malaise but staes he did have chills upon presenting to ED.
Past Medical / Surgical History
[id number] controlled, peripheral neuropathy, HTN, Hyperlipidemia
PSH-hernia repai
Medications
Reviewed on chart
Allergies
none known
Social / Family History
Denies alcohol or nicotine abuse, lives at home with family, employed
FH-not pertinent
Vital Signs / Labs
-
Vital Signs and Labs:
Temp Pulse Resp BP Pulse Ox
98.7 F 79 17 127/81 98
12/09/24 07:20 12/09/24 07:20 12/09/24 07:20 12/09/24 07:20 12/09/24 07:20
12/09/24 07:26
12/09/24 07:26
12/08/24 12/08/24 12/08/24
18:13 20:49 23:48
MCH 31.1 H
Absolute Neuts (auto) 7.7 H
Absolute Monos (auto) 0.8 H
Lymphocytes % 14.3 L
Sodium 133 L
Chloride 95 L
BUN 21 H
Glucose 392 H
Hemoglobin A1c 10.5 H
POC Glucose 264 H
12/09/24 12/09/24
07:26 08:19
MCH
Absolute Neuts (auto)
Absolute Monos (auto)
Lymphocytes %
Sodium
Chloride
BUN
Glucose 155 H
Hemoglobin A1c
POC Glucose 166 H
XRAYS personally reviewed and do not demonstrate ST gas or erosive changes to bone
Physical Exam
Vital Signs
Vital Signs
Temp Pulse Resp BP Pulse Ox
98.7 F 79 17 127/81 98
12/09/24 07:20 12/09/24 07:20 12/09/24 07:20 12/09/24 07:20 12/09/24 07:20
Physical Exam
General: Alert & oriented x 3, NAD
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
dorsal 5th met head and midfoot. There is a boggy callus sub 5th met w/o active drainage at present. A small intact bulla right 5th met head as well. No other breaks in skin noted B/L
Assessemnt/Plan
-
A/P
1-DM2 with peripheral Neuropathy
2-Ulcerated callus sub 5 left foot with abscess and lymphangitis
--> The left foot abscess was incised with sterile scalpel and drained of scant purulent and serosanguinous drainage, deepest area noted plantar to the met head. No tunneling to bone is noted. Will initiate wound care and protective shoe.
ABT per ID. No further surgery anticipated.
--- NOTE | 2024-12-09 11:07 | PHA.VAN.IN ---
Assessment
- Assessment
Renal Function: Appears similar to baseline
Concomitant Antimicrobials: cefazolin
AUC Dosing Plan
- Dosing Variables
Dosing Weight (kg): 86
Dosing CrCl (ml/min): 101
Vd coefficient (L/kg): 0.7
- Empiric Dosing
Initial / Loading Dose: 2000mg - 3/3 21:27
Maintenance Regimen: Vanc 1250mg Q12H starting at 1800
Estimated AUC (mcg*h/mL): 502
Estimated Peak (mcg*h/mL): 31.8
Estimated Trough (mcg/ml): 12.6
Estimated Half Life (H): 7.9
- Monitoring
No levels ordered at this time: consider levels in next few days
Pharmacokinetics Vancomycin I
- -
Patient Age: 54
Patient Sex: Male
Vancomycin Day #: 1
Indication: Diabetic Foot
Requesting Provider: Cele Jane
Pertinent Antimicrobial Allergies:
NKDA
Height / Weight:
Height 6 ft
Actual Weight 85.729 kg
Pertinent Past Medical History: DM 2
- Vital Signs / Lab Results
Temp Pulse Resp BP Pulse Ox
98.7 F 79 17 127/81 98
12/09/24 07:20 12/09/24 07:20 12/09/24 07:20 12/09/24 07:20 12/09/24 07:20
Lab Results - Hematology
12/08/24 12/09/24
18:13 07:26
WBC 10.3 8.2
Lab Results - Chemistry
12/08/24 12/09/24
18:13 07:26
BUN 21 H 16
Creatinine 0.9 0.9
Estimated Creat Clear 101
Albumin 4.6
--- NOTE | 2024-12-09 11:10 | WOUNDNOTE ---
R LATERAL PLANTAR FOOT CALLUS
--- NOTE | 2024-12-09 11:11 | WOUNDNOTE ---
WON RN note: Patient admitted with L plantar foot abscess and cellulitis.
See H&P for complete history. Lives with .
PMH: DM2-poorly controlled, peripheral neuropathy, HTN, Hyperlipidemia
Wound Location and type/assessment: Patient admitted with: L plantar Callus and abscess with cellulitis. Patient seen post debridement by Dr. Birmingham, wound care ordered and protective shoe. No bone visible, pink base, wound culture pending. Hgb
A1c 10.5, peer educator on consult. Cellulitis appears to be resolving, reviewed I&D note. R plantar 5th met head with flat callus. Heels are intact.
Appetite: Good.
Pressure redistribution devices in place: On Accumax, offloading shoe per podiatry.
Plan: Will update care plan with Dr. Birmingham's orders and will follow as needed.
Note to case management of equipment requested for discharge: None.
Recommend follow up with Dr. Birmingham upon discharge.
--- NOTE | 2024-12-09 11:24 | CON.ID ---
Consultation
-
Date/Time Consultation Requested: 12/09/24 00:53
Date/Time Consultation Performed: 12/09/24 11:25
Requesting Provider: Buck WATTS
Performing Provider: Dr Milan
Reason for Consultation: diabetic foot wound
Chief Complaint / Past History
Chief Complaint
left foot pain, redness and swelling
History of Present Illness
Mr Burks is a 54 year old male with history of uncontrolled Dm2 10.5 on insulin who presented here 12/08 for left pain pain, redness, swelling and edema. He does daily foot checks, had a callous but no wounds. Then last night with chills but did not
check for a fever. He denies any cough, shortness of breath, chest pain, nausea, vomiting, constipation, diarrhea or urinary symptoms. No previous foot infection.
Since arrival here he has been afebrile, bp stable, HR normal, wbc initially 10 now 8.2, hgb 16, plt 201, L shift not present, na 139, cr 0.9, a10.5, lfts wnl, foot xray no evidence of osteomyelitis or foreign body, a wound culture was obtained.
Staff noted puss near 5th toe and streaking cellulitis to mid christiansen
Past History
Additional Past Medical History:
essential hypertension
DM II
hyperlipidemia
anxiety/depression
Additional Past Surgical History:
nasal reconstruction (1995)
Hernia repair(2000) 09/2001
Laparoscopic right inguinal hernia repair(2000)
Circumcision (10/2024)
Allergy History:
No Known Allergies Allergy (Verified 12/08/24 17:46)
Medications Reviewed: Yes
Social History
Tobacco: Non-Smoker
Alcohol: Occasional
Drug: None
Family History
Family History: Not Pertinent
Review of Systems
Review of Systems
General: Negative Fever or Chills
All systems: All other systems were reviewed and were negative
Vital Signs
Temp Pulse Resp BP Pulse Ox
98.7 F 79 17 127/81 98
12/09/24 07:20 12/09/24 07:20 12/09/24 07:20 12/09/24 07:20 12/09/24 07:20
Physical Exam
Physical Exam
Constitutional: No Acute Distress
Cardiovascular: Regular Rate and S1/S2; Negative Murmur or Rub
Pulmonary: Clear and Symmetric; Negative Wheezes, Rales or Rhonchi
Gastrointestinal: Soft, Non Tender, Non Distended and Normal Bowel Sounds
Musculoskeletal: Other (L foot surgical site (debrided callous) superficial, no probe to bone or tendon, improved lymphangitic streaking, no fluctuance)
Skin: Warm and Dry; Negative Rash or Jaundice
Lab / Diagnostic Study Results
12/09/24 07:26
12/09/24 07:26
Abs Immat Gran (auto) 0.0 10^3/uL (0-0.05) 12/08/24 18:13
Absolute Neuts (auto) 7.7 10^3/uL (1.4-6.5) H 12/08/24 18:13
Absolute Lymphs (auto) 1.5 10^3/uL (1.2-3.4) 12/08/24 18:13
Absolute Monos (auto) 0.8 10^3/uL (0.1-0.6) H 12/08/24 18:13
Absolute Basos (auto) 0.1 10^3/uL (0-0.2) 12/08/24 18:13
Immature Gran % 0.2 % (0-0.5) 12/08/24 18:13
Neutrophils % 74.7 % (42.2-75.2) 12/08/24 18:13
Lymphocytes % 14.3 % (20.5-51.1) L 12/08/24 18:13
Monocytes % 7.7 % (1.7-9.3) 12/08/24 18:13
Eosinophils % 2.6 % (0-6) 12/08/24 18:13
Basophils % 0.5 % (0-2) 12/08/24 18:13
Microbiology Results
Micro:
12/09/24 08:47 MRSA Screen - Pending
Nose
12/08/24 20:49 Wound Culture - Pending
Foot - Left Gram Stain - Pending
Assessment / Plan
Mild Diabetic Foot Infection
DM2 - uncontrolled
- if febrile then send blood cultures x2
- agree with vanc/cefazolin for now
- would follow up wound culture to make final antibiotic regimen
- discussed need to improve DM2 control with patient and
- follow up with Dr Birmingham
[2024-12-09 13:18] LABS: Glucose - Point of Care 165 mg/dl (70-99)
[2024-12-09] MEDS: BACTROBAN 2% OINTMENT 1 APPLIC TOPICAL (14:00)
--- NOTE | 2024-12-09 14:00 | CM ---
CM reviewed medical records. CM met with patient and in room. Patient confirmed demographics. Patient has medication coverage and is active with his PCP. Patient does not have a history of VN, SNF or DME.
PLAN: Home
[2024-12-09 15:18] VITALS: BP 137/80
[2024-12-09 17:29] LABS: Glucose - Point of Care 202 mg/dl (70-99)
[2024-12-09] MEDS: VANCOCIN 275 MG IV (18:14)
[2024-12-09] MEDS: LOVENOX 40 MG SC (18:15)
[2024-12-09] MEDS: NOVOLOG FLEXPEN-LOW RESISTANCE 2 UNITS SC (18:21)
[2024-12-09 22:12] VITALS: BP 126/79
[2024-12-09] MEDS: FARXIGA 10 MG PO (22:12)
[2024-12-09] MEDS: LIPITOR 10 MG PO (22:12)
[2024-12-09] MEDS: ABILIFY 2 MG PO (22:13)
[2024-12-09] MEDS: TOPROL XL 100 MG PO (22:13)
[2024-12-09] MEDS: COZAAR 50 MG PO (22:13)
[2024-12-09] MEDS: PROTONIX 40 MG PO (22:13)
[2024-12-09] MEDS: ZOLOFT 100 MG PO (22:13)
[2024-12-09 22:24] LABS: Glucose - Point of Care 136 mg/dl (70-99)
[2024-12-09] MEDS: FLUSH (NSS) 2 FLUSH IV (23:37)
[2024-12-10] MEDS: VANCOCIN 275 MG IV (06:02)
[2024-12-10] MEDS: FLUSH (NSS) 3 FLUSH IV (06:03)
[2024-12-10 07:00] VITALS: BP 119/80
[2024-12-10] MEDS: ANCEF 5 IV (07:43)
[2024-12-10] MEDS: BACTROBAN 2% OINTMENT 1 APPLIC TOPICAL (07:47)
[2024-12-10 08:16] LABS: Hematocrit 44.9 % (39.0-52.0); Hemoglobin 15.4 g/dL (13.0-18.0); Mean Corp Hgb Conc. 34.3 g/dL (33.0-37.0); Mean Corpuscular Hgb 30.9 pg (27.0-31.0); Mean Platelet Volume 10.2 fL (7.4-10.4); Platelet Count 209 10^3/uL (130-400); Red Blood Cell Count 4.99 10^6/uL (4.70-6.10); Red Cell Dist. Width 12.4 % (11.5-14.5); White Blood Cell Count 7.4 10^3/uL (4.8-10.8)
[2024-12-10 09:11] LABS: Glucose - Point of Care 124 mg/dl (70-99)
[2024-12-10 09:13] LABS: Blood Urea Nitrogen 17 mg/dl (9-20); Calcium 9.3 mg/dl (8.4-10.2); Carbon Dioxide 28 mmol/L (22-30); Chloride 101 mmol/L (98-107); Estimated Creatinine Clearance 101 ml/min; Glucose 123 mg/dl (70-99); Potassium 4.4 mmol/L (3.5-5.1); Sodium 139 mmol/L (135-145); eGFR > 60.00
--- NOTE | 2024-12-10 09:15 | PN.DE.MGMTRT ---
Insulin Management
- -
12/10/2024 Diabetes Management Consult Follow up
Patient admitted 12/08 with L foot/leg pain and redness, found to have cellulitis. PMH HTN, HLD, anxiety/depression. A1C 10.5% (05/02/24 A1C 11.5%), cr .9, eGFR > 60. Prior to admission was taking Rybelsus 7 mg @ hs, Jardiance 25 mg @ HS, Semglee
40 units @ HS.
Patient is awake alert and oriented able to discuss diabetes management. States he has had diabetes 10+ years, sees primary doctor for management. He has a working glucose monitor.
12/09 Received 30 units lantus @ hs , fasting glucose 155 v this AM. Started AC novolog 4 units with low corrective, farxiga 10 daily. Glucose 136 to 202.
12/10 Fasting glucose 124 today, will increase AC novolog to 6 units and continue lantus 30 units @ hs and farxiga 10 mg daily.
Discussed at length importance of taking medications when they will work best to control glucose. Encouraged to take Rybelsus and Jardiance in AM, patient verbalized understanding.
Patient requested prescriptions for DexCom G7 CGM. Explained RX would be placed and transmitted to find out if covered.
Discussed with nurse.
Will follow
Diabetes History
- -
Type of Diabetes: 2 requiring insulin
Pre-Admission Diabetes Regimen
12/10/24
07:20
Creatinine 0.9
Lab Results
Hemoglobin A1c 10.5 % (4.0-5.6) H 12/08/24 20:49
Insulin Pump Settings
IP Diabetes Regimen
12/09/24 12/09/24 12/09/24
13:07 17:17 22:08
Glucose
POC Glucose 165 H 202 H 136 H
12/10/24 12/10/24
07:20 09:00
Glucose 123 H
POC Glucose 124 H
Meal type: Lunch
Meal type: Breakfast
Amount consumed: 100%
Amount consumed: 100%
Patient Education
[2024-12-10] MEDS: NOVOLOG FLEXPEN-LOW RESISTANCE SC (09:16)
[2024-12-10] MEDS: NOVOLOG FLEXPEN SC (09:17)
--- NOTE | 2024-12-10 09:22 | PHA.VAN.FU ---
Vancomycin Assessment / Plan
- Assessment
Renal Function: Stable
WBC's are: WNL
In the past 24 hrs, patient has been: Afebrile
Concomitant Antimicrobials: cefazolin
- Dosing Plan
Continue: Vanc 1250mg Q12H
- Monitoring Plan
No level(s) ordered at this time: consider levels in next few days
- Follow Up
Pharmacy will continue to follow.
Vancomycin Follow UP
- -
Patient Age: 54
Patient Sex: Male
Vancomycin Day #: 2
Indication: Diabetic Foot
Requesting Provider: Cele Jane / Dr. Milan
Pertinent Antimicrobial Allergies:
NKDA
Height / Weight:
Height 6 ft
Actual Weight 85.729 kg
Pertinent Past Medical History: DM 2
- Vital Signs / Lab Results
Temp Pulse Resp BP Pulse Ox
97.6 F 77 18 119/80 96
12/10/24 07:00 12/10/24 07:00 12/10/24 07:00 12/10/24 07:00 12/10/24 07:00
Lab Results - Hematology
12/08/24 12/09/24 12/10/24
18:13 07:26 07:20
WBC 10.3 8.2 7.4
Lab Results - Chemistry
12/08/24 12/09/24 12/10/24
18:13 07:26 07:20
BUN 21 H 16 17
Creatinine 0.9 0.9 0.9
Estimated Creat Clear 101 101
Albumin 4.6
Microbiology Results
12/08/24 20:49 Gram Stain - Preliminary
Foot - Left
[2024-12-10] MEDS: NOVOLOG FLEXPEN 6 UNITS SC ×2 (09:36→12:57)
--- NOTE | 2024-12-10 09:38 | CM ---
Maintained on duel IV antibiotics Pending cultures.
Afebrile.
Continued with wound care right foot.
DM educator involved. Glucose results lower.
Wearing off loading boot.
Offered VN declined need.
PLAN Home no needs
--- NOTE | 2024-12-10 10:44 | W.PN.HOSP.TC ---
Addendum entered and electronically signed by Jeevan Kwon MD 12/10/24 15:27:
Podiatry performed I&D 3/4. With some purulent drainage. Patient will follow-up with podiatry outpatient
Addendum entered and electronically signed by Jeevan Kwon MD 12/10/24 14:11:
Discussed with infectious disease. Transition antibiotics to doxy 100 mg po bid and keflex 500 mg po qid both for 10 more days. ID will follow further cultures outpatient
Discharge home today
Time of discharge 37 minutes
Original Note:
Today's Communication/Plan
-
Monitor vital signs see plan
Continue with antibiotics per infectious disease
Encourage ambulation
Monitor sugars
follow culture
Assessment / Plan
Assessment / Plan
Assessment:
Diabetic foot infection, acute with cellulitis
- Xray without osteomyelitis
- callous on plantar surface, near 5th toe with pus and streaking cellulitis to mid christiansen
- RN to julianne cellulitis pattern
- continue Vancomycin pending MRSA swab
- continue Ancef
- ID consult
- Podiatry consult
- wound care consult
Type 2 IDDM
- continue Lantus
- continue Jardiance
- on semaglutide - held
- SSI
- A1c 10.5
- [facility] [facility] consulted
Pseudohyponatremia
- from hyperglycemia
- monitor BMP
Essential HTN
- continue ARB/BB
HLD - statin
Anxiety/Depression
- continue Zoloft/Abilify
DVT ppx: Lovenox
Code: Full
General: No Apparent Distress
HEENT: Normocephalic and Atraumatic
Respiratory: Clear to Auscultation; Negative Wheezes
Cardiac: Regular Rhythm and S1/S2
GI: Soft
Genito-urinary: No Costovertebral Tender
Neuro: AO x 3
EXT: left foot bandage, mild erythema
Psych: Calm
Anticipated Discharge: Within 24 hours
Subjective/Interval History
-
Date of Service: December 10, 2024
Objective Data
-
Labs:
Laboratory Results
12/10/24
07:20
WBC 7.4
Hgb 15.4
Hct 44.9
Plt Count 209
Sodium 139
Potassium 4.4
Chloride 101
Carbon Dioxide 28
BUN 17
Creatinine 0.9
Glucose 123 H
Calcium 9.3
Vital Signs:
Vital Signs
Temp Pulse Resp BP Pulse Ox
97.6 F 77 18 119/80 96
12/10/24 07:00 12/10/24 07:00 12/10/24 07:00 12/10/24 07:00 12/10/24 07:00
I&O
12/09/24 12/10/24 12/11/24
06:59 06:59 06:59
Intake Total 480 / 480 2132
Balance 480 / 480 2132
[2024-12-10 12:27] LABS: Glucose - Point of Care 172 mg/dl (70-99)
[2024-12-10] MEDS: NOVOLOG FLEXPEN-LOW RESISTANCE 1 UNITS SC (12:57)
--- NOTE | 2024-12-10 13:12 | W.PN.POD ---
Today's Communication
Today's Communication
Left foot wound was evaluated and cleansed and redressed with mupirocin dressing today. I have recommended he continue wound care at home.
Shoe was offloaded in the area of the wound with adhesive foam. Discussed with Ancelmo that he should wear this until wound has healed. I have recommended follow up as outpatient once DC home for custodial offloading in diabetic shoes/inserts and
wound care.
will see as outpt, stable from my standpoint and no further surgical intervention needed.
Assessment / Plan
-
DM2 with hyperglycemeia
DM2 with diminished protective sensation
DM2 with diabetic foot ulcer
Cellulitis w/lymphangitis- improved
Subjective
Chief Complaint
Left foot infection;Diabetic foot infection
Subjective
Pt is sitting at side of bed with protective shoe on having breakfast. No concerns offered, states he is feeling 'well'
Objective
Temp Pulse Resp BP Pulse Ox
97.6 F 77 18 119/80 96
12/10/24 07:00 12/10/24 07:00 12/10/24 07:00 12/10/24 07:00 12/10/24 07:00
12/10/24 07:20
12/10/24 07:20
Vital Signs and Lab results were reviewed.
Inspection: Cellulitis (left foot improved) and Ulcer (granular, no purulence or malodor)
Review of Systems
Review of Systems
Review of Systems: No Fever, No Chills, No Headache and No Diarrhea
Physical Exam
Physical Exam
General: Well Developed, Well Nourished, No Apparent Distress and Comfortable
Musculoskeletal: No Clubbing, No Cyanosis and Edema, Left Lower Extrem (improved/decreased left foot)
Skin: Warm, Dry and Neurotrophic Ulcer (diabetic ulcer is granular, involves the subcutaneous tissue, no odor or purulence. Lymphangitis improved to the forefoot left foot)
Neuro: AO x 3 and Protective Sensation Diminished
Vascular: Capillary Refill Intact and Skin Temperature Warm to Cool
Dorsalis Pedis: Intact
Posterior Tibialis: Intact
--- NOTE | 2024-12-10 14:18 | W.DCSUMMARY ---
Discharge Summary
Discharge Data
Date of Admission: 12/08/24
Date of Discharge: 12/10/24
-
Pending Results: Yes
Hospital Course
54-year-old male with past medical history of essential hypertension, hyperlipidemia, anxiety/depression, type 2 diabetes mellitus came to the hospital with diabetic foot infection with cellulitis and abscess. Patient was seen by podiatry and
infectious disease throughout hospitalization. Podiatry performed I&D. Final cultures were still pending prior to the discharge however Gram stain appeared to be negative. Infectious disease recommended transition to oral antibiotics and they
will follow-up with cultures outpatient. Patient was also seen by diabetes nurse practitioner who titrated his insulin. Once patient symptoms continue to improve and he was transitioned to oral antibiotics, he was then discharged home with
instructions to follow-up with all his physicians outpatient.
Discharge Plan
-
Patient Disposition: Home (Routine Discharge)
Discharge Diagnosis/Procedures: Diabetic foot infection, acute with cellulitis with possible abscess s/p I and D
type 2 DM
Diet: As tolerated and Diabetic, Carb Controlled
Activity: As tolerated
Driving Restrictions: As prior to admission
Bathing Restrictions: None
Activity Restrictions/Additional Instructions:
Wound Care Instructions
L plantar foot: clean with Vashe then dry with gauze, mupirocin to base of wound then bordered foam change daily.
Manage blood sugars as directed by extension educator
Offloading shoe per Podiatry
Follow up With Dr. Birmingham upon discharge
Referrals:
Yasmine Quintana CRNP [Family Provider] - in less than 1 week
Lissy Birmingham DPM [Active] - in less than 1 week
Sandra Milan MD [Active] -
Prescriptions:
New
insulin glargine-yfgn [Semglee(insulin glarg-yfgn)Pen] 100 unit/mL (3 mL) Insulin Pen
30 unit SC HS Qty: 5 0RF
(DME) Dexcom G7 Sensor Device
Qty: 3 1RF
Rx Instructions:
As Directed
mupirocin 2 % Ointment
1 applic topical DAILY Qty: 50 0RF
doxycycline hyclate 100 mg capsule
100 mg PO BID Qty: 20 0RF
cephalexin 500 mg capsule
500 mg PO QID 10 Days Qty: 40 0RF
insulin lispro [Humalog KwikPen Insulin] 100 unit/mL Insulin Pen
6 unit SC AC Qty: 5 1RF
Continued
atorvastatin 10 mg tablet
10 mg PO HS
omeprazole 20 mg capsule,delayed release(DR/EC)
20 mg PO HS
aripiprazole 2 mg Tablet
2 mg PO HS
losartan 50 mg tablet
50 mg PO HS
metoprolol succinate 100 mg tablet extended release 24 hr
100 mg PO HS
sertraline 50 mg Tablet
100 mg PO HS
lorazepam 0.5 mg Tablet
0.5 mg PO DAILYPRN PRN (Reason: plane flights)
Changed
Jardiance 25 mg tablet
25 mg PO DAILY Qty: 0 0RF
Rybelsus 7 mg tablet
7 mg PO DAILY Qty: 0 0RF
Discontinued
insulin glargine-yfgn [Semglee(insulin glarg-yfgn)Pen] 100 unit/mL (3 mL) insulin pen
40 unit SC HS
Discharge Orders:
Discharge Patient (As Directed); Ordered 12/10/24
Ordered By: Jeevan Kwon
Discharge Date and Time
Discharge Date/Time: 12/10/24 15:30
Print Language: MALTESE
--- NOTE | 2024-12-10 15:07 | W.PN.ID1 ---
Addendum entered and electronically signed by Sandra Milan MD 12/10/24 15:17:
correction duration will be 10 more days
Original Note:
Date of Service
Date of Service: December 10, 2024
Today's Communication
- start doxycycline 100 mg PO BID and keflex 500 mg PO QID x 12 more days
- will follow up wound culture periodically
Assessment / Plan
Mild Diabetic Foot Infection
DM2 - uncontrolled
- if febrile then send blood cultures x2
- start doxycycline 100 mg PO BID and keflex 500 mg PO QID x 12 more days
- will follow up wound culture periodically
- discussed need to improve DM2 control with patient
- follow up with Dr Birmingham
Chief Complaint
-: Other (mild diabetic foot infection)
Subjective / Review of Systems
afebrile
bp stable
erythema receding
able to bear weight
less pain
Vital Signs / Physical Exam
Vital Signs
Vital Signs
Temp Pulse Resp BP Pulse Ox
97.6 F 77 18 119/80 96
12/10/24 07:00 12/10/24 07:00 12/10/24 07:00 12/10/24 07:00 12/10/24 07:00
Physical Exam
Constitutional: No Acute Distress
Cardiovascular: Regular Rate
Pulmonary: Symmetric
Gastrointestinal: Non Distended
Wound: Other (receeding erythema, no purulent drainage, less tender and warm, wound is superficial)
Objective Data
Lab Data
Lab Results
12/10/24 07:20
12/10/24 07:20
Estimated Creat Clear 101 ml/min 12/10/24 07:20
Total Bilirubin 1.0 mg/dl (0.2-1.3) 12/08/24 18:13
AST 19 U/L (17-59) 12/08/24 18:13
ALT 27 U/L (0-50) 12/08/24 18:13
Alkaline Phosphatase 109 U/L (38-126) 12/08/24 18:13
Most recent labs reviewed.
Micro Results:
12/08/24 20:49 Wound Culture - Preliminary
Foot - Left Gram Stain - Preliminary
12/09/24 08:47 MRSA Screen - Pending
Nose
[2024-12-10 15:20] VITALS: BP 112/78
== END 2024-12-10 15:30 | disposition home or self-care (01) | DRG 638 ==
LOC: 1 ACUTE 23:51
PROVIDERS: Internal Medicine; Nurse Practitioner; Nurse Practitioner Family; Physician Assistant Medical; ADMITTING PHYSICIAN Internal Medicine; ATTENDING PHYSICIAN Internal Medicine; CONSULT PHYSICIAN Podiatrist Foot & Ankle Surgery; EMERGENCY PHYSICIAN Emergency Medicine; FAMILY PHYSICIAN Nurse Practitioner Family; OTHER PHYSICIAN Student in an Organized Health Care Education/Training Program
PROC: 0Y9J0ZZ Drainage of Left Lower Leg, Open Approach (ICD-10-PCS; 2024-12-08)
DX: E11.628 Type 2 diabetes mellitus with other skin complications (principal); L02.612 Cutaneous abscess of left foot; L03.116 Cellulitis of left lower limb; E11.621 Type 2 diabetes mellitus with foot ulcer; L97.529 Non-pressure chronic ulcer of other part of left foot with unspecified severity; E11.42 Type 2 diabetes mellitus with diabetic polyneuropathy; E11.65 Type 2 diabetes mellitus with hyperglycemia; I10 Essential (primary) hypertension; F32.A Depression, unspecified; F41.9 Anxiety disorder, unspecified; K21.9 Gastro-esophageal reflux disease without esophagitis; E78.00 Pure hypercholesterolemia, unspecified; Z79.4 Long term (current) use of insulin
CPT/HCPCS: 73630; 80048; 80053; 82962; 83036; 85025; 85027; 87070; 87205; 96365; 96366; 96367; 99285

== ENCOUNTER 2025-02-01 10:13 | Emergency (ER) | payer BC, SELFPAY ==
[2025-02-01 10:16] VITALS: BP 107/80
[2025-02-01 11:09] VITALS: BMI 24.2
[2025-02-01 11:25] LABS: % Basophils 0.6 % (0-2); % Immature Granulocytes 0.2 % (0-0.5); % Lymphocytes 20.5 % (20.5-51.1); % Monocytes 8.9 % (1.7-9.3); % Neutrophils 66.8 % (42.2-75.2); Absolute Basophils 0.1 10^3/uL (0-0.2); Absolute Eosinophils 0.2 10^3/uL (0-0.7); Absolute Lymphocytes 1.7 10^3/uL (1.2-3.4); Absolute Monocytes 0.7 10^3/uL (0.1-0.6); Absolute Neutrophils 5.4 10^3/uL (1.4-6.5); Hematocrit 47.3 % (39.0-52.0); Hemoglobin 16.4 g/dL (13.0-18.0); Mean Corp Hgb Conc. 34.7 g/dL (33.0-37.0); Mean Corpuscular Hgb 31.2 pg (27.0-31.0); Mean Corpuscular Volume 89.9 fL (80.0-94.0); Mean Platelet Volume 9.8 fL (7.4-10.4); Nucleated Red Blood Cells % 0 % (-); Platelet Count 227 10^3/uL (130-400); Red Blood Cell Count 5.26 10^6/uL (4.70-6.10); Red Cell Dist. Width 12.1 % (11.5-14.5); White Blood Cell Count 8.1 10^3/uL (4.8-10.8)
[2025-02-01] MEDS: ZOFRAN 4 MG IV (11:36)
[2025-02-01] MEDS: NSS 1000 IV (11:37)
[2025-02-01 12:11] LABS: Blood Urea Nitrogen 15 mg/dl (9-20); Calcium 9.6 mg/dl (8.4-10.2); Carbon Dioxide 25 mmol/L (22-30); Chloride 107 mmol/L (98-107); Estimated Creatinine Clearance 101 ml/min; Glucose 93 mg/dl (70-99); Lipase 58 U/L (23-300); Sodium 141 mmol/L (135-145); eGFR > 60.00
[2025-02-01 13:00] VITALS: BP 138/82
[2025-02-01 13:33] LABS: Potassium 4.3 mmol/L (3.5-5.1)
--- NOTE | 2025-02-01 13:51 | ED.GENMED ---
History of Present Illness
General
Chief Complaint: Abdominal Symptoms
Time Seen by Provider: 02/01/25 10:58
History of Present Illness
History of Present Illness:
54-year-old male presents the emergency department for evaluation of intermittent nausea vomiting and diarrhea ongoing for the past 3 weeks. He does note that he has been treated for a left foot plantar diabetic ulcer with levofloxacin but has been
taking this for 10 days, completes the course tomorrow. Denies any significant abdominal pain. No hematemesis or hematochezia. No obvious provoking or palliating factors.
Past History
Past History
ED Past Medical History: HTN, Hypercholesterolemia, IDDM and Psychiatric
ED Past Surgical History: Other (Right inguinal hernia repair approximately 15 years ago)
Social History
Tobacco: Non-smoker
Alcohol: Occasional
Drug: None
Personal:
Living: with family
Employment: Employed
Family History
Family History: Hypertension
Review of Systems
Review of Systems
Allergies reviewed?: Yes
All Other Systems: ROS reviewed and negative except as documented in HPI and ROS
Phy Exam
Physical Exam
Physical Exam:
GEN: Well appearing, NAD, WDWN
HEENT: Oral mucosa moist, no scleral icterus
Cardiac: Regular rate
Lung: No respiratory distress, no tachypnea
Abdomen: Soft, grossly nontender
MSK: No gross deformity or injuries
Skin: Good color, no pallor or jaundice, no rashes
Neuro: AO x3, moves all extremities freely
Psych: Calm, cooperative
Course
Orders/Labs/Results
Orders:
Orders
02/01/25 11:12
0.9% Sodium Chloride 1000 ml [Nss] 1,000 ml IV BOLUS
02/01/25 11:18
Basic Metabolic Panel Urgent
Complete Blood Count/With Diff Urgent
Lipase Urgent
02/01/25 11:33
Ondansetron Injectable [Zofran] 4 mg IV NOW STA
02/01/25 12:22
CT Abd/Pel (IV only)-DH only Urgent
Comment:
Reason For Exam: N/V/D
02/01/25 13:09
Potassium Urgent
02/01/25 14:40
C DIFF [C difficile Antigen & Toxins] Urgent
DEZ Source: Feces/Stool
Specimen Description:
Stool Culture Urgent
DEZ Source: Feces/Stool
Specimen Description:
Abnormal Lab Results
02/01/25
11:18
MCH 31.2 H pg
(27.0-31.0)
Absolute Monos (auto) 0.7 H 10^3/uL
(0.1-0.6)
02/01/25 11:18
02/01/25 13:09
Vital Signs
Initial and Last Documented VS:
Initial Vital Signs
Temp Pulse Resp BP Pulse Ox
97.5 F 92 16 107/80 100
02/01/25 10:16 02/01/25 10:16 02/01/25 10:16 02/01/25 10:16 02/01/25 10:16
Last Documented Vital Signs
Temp Pulse Resp BP Pulse Ox
97.5 F 87 18 138/82 97
02/01/25 10:16 02/01/25 13:00 02/01/25 13:00 02/01/25 13:00 02/01/25 13:00
MDM/Problems Addressed
MDM/Problems Addressed:
Upon suspicion for C. difficile as the patient has been treated with cephalexin twice, doxycycline once, and Levaquin in the past 3 months. This would explain the proctocolitis. Uncertain cause of gastritis. He is clinically stable for outpatient
management, will recommend empiric treatment pending stool testing
*Critical Care Note
Total Time (30-74mins, 75-104mins- exclusive of procedures): Not Applicable
ED Attending Note
-
Portions of this chart may have been created with voice recognition software.� Occasional wrong word or��sound alike� substitutions may have occurred due to the inherent limitations of voice recognition software.
Discharge Plan
Departure
Patient Disposition: Home (Routine Discharge)
Date of Disposition: 02/01/25
Time of Disposition: 14:41
Patient with high blood pressure during this ER visit?: No
Discharge Problem:
Proctocolitis
Instructions: C. difficile infection
Prescriptions:
New
vancomycin 125 mg capsule
125 mg PO QID 10 Days Qty: 40 0RF
ondansetron 4 mg tablet,disintegrating
4 mg PO TIDPRN PRN (Reason: nausea/vomiting) Qty: 10 0RF
No Action
atorvastatin 10 mg tablet
10 mg PO HS
omeprazole 20 mg capsule,delayed release(DR/EC)
20 mg PO HS
aripiprazole 2 mg Tablet
2 mg PO HS
losartan 50 mg tablet
50 mg PO HS
metoprolol succinate 100 mg tablet extended release 24 hr
100 mg PO HS
sertraline 50 mg Tablet
100 mg PO HS
lorazepam 0.5 mg Tablet
0.5 mg PO DAILYPRN PRN (Reason: plane flights)
insulin glargine-yfgn [Semglee(insulin glarg-yfgn)Pen] 100 unit/mL (3 mL) Insulin Pen
30 unit SC HS Qty: 5 0RF
(DME) Dexcom G7 Sensor Device
Qty: 3 1RF
Rx Instructions:
As Directed
mupirocin 2 % Ointment
1 applic topical DAILY Qty: 50 0RF
doxycycline hyclate 100 mg capsule
100 mg PO BID Qty: 20 0RF
cephalexin 500 mg capsule
500 mg PO QID 10 Days Qty: 40 0RF
Jardiance 25 mg tablet
25 mg PO DAILY Qty: 0 0RF
Rybelsus 7 mg tablet
7 mg PO DAILY Qty: 0 0RF
insulin lispro [Humalog KwikPen Insulin] 100 unit/mL Insulin Pen
6 unit SC AC Qty: 5 1RF
Referrals:
Sanjuanita Dominguez PA-C [Family Provider] -
Interventions
Interventions:
*Risk Screen - Suicide Last Done: 02/01/25 10:18
*General Assessment Last Done: 02/01/25 11:10
*Neglect/Abuse Screening Last Done: 02/01/25 10:18
*ED- Fall Risk Assessment Last Done: 02/01/25 11:10
*ED COVID-19 Vaccine History Last Done: 02/01/25 11:10
YZ-Ovdlmy-Ukkdkuyfeu Assessment Last Done: 02/01/25 11:05
Discharge Date and Time
Print Language: NEPALI
[2025-02-01 15:00] VITALS: BP 130/65
== END 2025-02-01 15:35 | disposition home or self-care (01) ==
LOC: EMR 10:13
PROVIDERS: Physician Assistant; EMERGENCY PHYSICIAN Emergency Medicine; FAMILY PHYSICIAN Physician Assistant Medical
DX: K51.30 Ulcerative (chronic) rectosigmoiditis without complications (principal); I10 Essential (primary) hypertension; E78.00 Pure hypercholesterolemia, unspecified; E11.621 Type 2 diabetes mellitus with foot ulcer; N40.0 Benign prostatic hyperplasia without lower urinary tract symptoms; Z79.2 Long term (current) use of antibiotics; Z79.4 Long term (current) use of insulin
CPT/HCPCS: 96374; 96361; 99284; 74177; 80048; 83690; 84132; 85025; 87045; 87046; 87324; 87427; 87449; Q9967

== ENCOUNTER → 2025-04-30 10:11 | Outpatient (REF) | payer BC, SELFPAY | LOC: RAD 10:11 | PROVIDERS: ATTENDING PHYSICIAN Podiatrist Foot & Ankle Surgery; FAMILY PHYSICIAN Nurse Practitioner Family | DX: Z01.811 Encounter for preprocedural respiratory examination (principal) | CPT/HCPCS: 71046 ==

== ENCOUNTER 2025-05-06 06:04 | Day surgery (SDC) | payer BC, SELFPAY ==
[2025-05-06 07:11] LABS: Glucose - Point of Care 232 mg/dl (70-99)
[2025-05-06 07:15] VITALS: BMI 24.4
[2025-05-06 07:16] VITALS: BMI 24.4
[2025-05-06 07:17] VITALS: BP 147/88
[2025-05-06] MEDS: NORMOSOL-R/PLASMALYTE-A 1000 IV (07:19)
[2025-05-06 09:17] VITALS: BP 101/66
[2025-05-06 09:22] LABS: Glucose - Point of Care 225 mg/dl (70-99)
[2025-05-06 09:30] VITALS: BP 102/65
[2025-05-06] MEDS: NOVOLOG vial 2 UNITS SC (09:38)
[2025-05-06 09:45] VITALS: BP 103/76
[2025-05-06 10:01] VITALS: BP 112/74
== END 2025-05-06 10:28 | disposition home or self-care (01) ==
LOC: SDS 06:04
PROVIDERS: ATTENDING PHYSICIAN Podiatrist Foot & Ankle Surgery
DX: M89.8X6 Other specified disorders of bone, lower leg (principal); E11.621 Type 2 diabetes mellitus with foot ulcer; L97.512 Non-pressure chronic ulcer of other part of right foot with fat layer exposed; L97.529 Non-pressure chronic ulcer of other part of left foot with unspecified severity
CPT/HCPCS: 28113; 73630; 82962; 88304; 88311; Q4104; Q4118